=== PATIENT | male | born 2005 | race Two or more races ===

== ENCOUNTER 2023-02-12 15:57 | Emergency (ER) | payer OTHER ==
[~2023-02-12] VITALS: Ht 170.2 cm; Wt 72.7 kg
[2023-02-12 16:00] VITALS: BP 138/76
== END 2023-02-12 17:02 | disposition left against medical advice (07) ==
LOC: EMS 16:00
DX: H57.12 Ocular pain, left eye (principal); Z53.21 Procedure and treatment not carried out due to patient leaving prior to being seen by health care provider
CPT/HCPCS: 99281; Z7502